=== PATIENT | female | born 1950 | race Caucasian/White ===

== ENCOUNTER → 2017-06-22 | Outpatient (CLI) | payer MEDICARE, OTHER ==
[~2017-06-22] VITALS: Ht 160 cm; Wt 81.0 kg
[~2017-06-22] MED LIST: CELEXA10 MG PO; NEURONTIN800 MG/TAB PO; NORVASC 5MG5 MG/TAB PO; PRAVACHOL10 MG PO
[2017-06-22 14:06] VITALS: BP 116/68; PULSE 64
== END ==
LOC: LIGHT 09:14
DX: E78.5 Hyperlipidemia, unspecified (principal); I10 Essential (primary) hypertension; G47.33 Obstructive sleep apnea (adult) (pediatric); E66.01 Morbid (severe) obesity due to excess calories; Z68.31 Body mass index [BMI] 31.0-31.9, adult; Z71.3 Dietary counseling and surveillance
CPT/HCPCS: G0463

== ENCOUNTER → 2017-06-28 | Outpatient (CLI) | payer MEDICARE, OTHER ==
[~2017-06-28] VITALS: Ht 160 cm; Wt 81.0 kg
== END ==
LOC: LIGHT 08:35
DX: Z01.89 Encounter for other specified special examinations (principal)

== ENCOUNTER → 2017-07-20 | Outpatient (CLI) | payer MEDICARE, OTHER | LOC: LIGHT 12:57 | DX: Z01.818 Encounter for other preprocedural examination (principal) ==

== ENCOUNTER → 2017-07-20 | Outpatient (CLI) | payer MEDICARE, OTHER ==
[~2017-07-20] VITALS: Ht 160 cm; Wt 80.5 kg
[2017-07-20 14:13] VITALS: BP 118/70; PULSE 60
== END ==
LOC: LIGHT 09:48
DX: Z01.89 Encounter for other specified special examinations (principal)

== ENCOUNTER → 2017-08-17 | Outpatient (CLI) | payer MEDICARE, OTHER ==
[~2017-08-17] VITALS: Ht 160 cm; Wt 77.8 kg
[2017-08-17 16:06] VITALS: BP 110/64; PULSE 60
== END ==
LOC: LIGHT 09:01
DX: E78.5 Hyperlipidemia, unspecified (principal); I10 Essential (primary) hypertension; G47.33 Obstructive sleep apnea (adult) (pediatric); E66.01 Morbid (severe) obesity due to excess calories; Z68.30 Body mass index [BMI] 30.0-30.9, adult; Z71.3 Dietary counseling and surveillance
CPT/HCPCS: G0463

== ENCOUNTER → 2017-09-21 | Outpatient (CLI) | payer MEDICARE, OTHER ==
[~2017-09-21] VITALS: Ht 160 cm; Wt 77.6 kg
[2017-09-21 16:31] VITALS: BP 96/50; PULSE 60
== END ==
LOC: LIGHT 16:21
DX: E78.5 Hyperlipidemia, unspecified (principal); I10 Essential (primary) hypertension; G47.33 Obstructive sleep apnea (adult) (pediatric); E66.01 Morbid (severe) obesity due to excess calories; Z68.30 Body mass index [BMI] 30.0-30.9, adult; Z71.3 Dietary counseling and surveillance
CPT/HCPCS: G0463

== ENCOUNTER → 2017-12-21 | Outpatient (CLI) | payer MEDICARE, OTHER ==
[~2017-12-21] VITALS: Ht 160 cm; Wt 77.1 kg
[2017-12-21 16:17] VITALS: BP 132/68; PULSE 60
== END ==
LOC: LIGHT 10-26 16:47
DX: E66.9 Obesity, unspecified (principal); Z71.3 Dietary counseling and surveillance

== ENCOUNTER → 2018-06-28 | Outpatient (CLI) | payer MEDICARE, OTHER ==
[~2018-06-28] VITALS: Ht 160 cm; Wt 78.0 kg
[2018-06-28 16:53] VITALS: BP 120/76; PULSE 61
== END ==
LOC: LIGHT 01-18 11:14
DX: E78.5 Hyperlipidemia, unspecified (principal); I10 Essential (primary) hypertension; G47.33 Obstructive sleep apnea (adult) (pediatric); E66.01 Morbid (severe) obesity due to excess calories; Z68.30 Body mass index [BMI] 30.0-30.9, adult; Z71.3 Dietary counseling and surveillance
CPT/HCPCS: G0463